=== PATIENT | male | born 1965 | race Caucasian/White ===

== ENCOUNTER 2022-08-19 06:30 | Day surgery (SDC) | payer OTHER, BC, SELFPAY ==
[2022-08-19] VITALS (11 sets, daily range): BP systolic 97–153; BP diastolic 61–99; PULSE 51–58; RESP 14–16; TEMP 36.1–36.8; O2SAT 94–97; BMI 41.4
[2022-08-19] MEDS: SODIUM CHLORIDE 0.9 % (FLUSH) 10 ML SYRINGE IVF (06:45)
[2022-08-19] MEDS: LACTATED RINGERS 1000 ML 1,000 ML 100 ML IV ×2 (06:45→09:38)
--- NOTE | 2022-08-19 08:00 | W.ANESCHARGE ---
Anesthesia Charges Start Date/Time Anesthesia Start Date: 08/19/22 Anesthesia Start Time: 08:19 Stop Date/Time Anesthesia Stop Date: 08/19/22 Anesthesia Stop Time: 09:09
[2022-08-19] MEDS: CEFAZOLIN 2 GM INJ IVP (08:32)
[2022-08-19] MEDS: BUPIVACAINE 0.25% 30 ML INJECTION (08:54)
--- NOTE | 2022-08-19 09:08 | PM.ORPRC ---
Procedure Note Date of procedure: 08/19/22 Procedure: PREOPERATIVE DIAGNOSIS: Right knee medial meniscus tear POSTOPERATIVE DIAGNOSIS: Right knee medial meniscus tear NAME OF OPERATION: Right knee arthroscopic partial medial meniscectomy SURGEON: Houston Pisano MD RESEARCH SPEC: Cassandra Abdalla PA-C ANESTHESIA: Spinal ESTIMATED BLOOD LOSS: 0 mL COMPLICATIONS: None SPECIMENS: None DRAINS: None PREOPERATIVE ANTIBIOTICS: Ancef 2 gram INDICATIONS: The patient is a 56-year-old with a history of right knee medial pain. MRI scan is consistent with a medial meniscus tear. Despite appropriate nonoperative management, including activity modification, antiinflammatories, [id number] pain medication, bracing, physical therapy, and injections they continue to have pain and disability. Operative intervention was offered. The risks, benefits and expected outcomes were discussed in detail. These included but were not limited to: Infection, bleeding, injury to blood vessel or nerve, venous thromboembolism. All questions were answered to their satisfaction. PROCEDURE: Spinal anesthesia was administered. The patient was placed supine on the operating room table. The right lower extremity was prepped and draped in the usual sterile fashion. The limb was exsanguinated with the Juanjose bandage. The pneumatic tourniquet was inflated to 300 mmHg. A standard anterolateral portal was established. The arthroscope was introduced. The working portal was established anteromedially. Diagnostic arthroscopy was performed with findings as follows: The suprapatellar pouch is normal. Articular surface on the patella is normal. Articular surface on the trochlea is normal. The medial gutter is normal. The medial compartment shows diffuse grade 2/3 change on the medial femoral condyle, grade 2 change on the medial tibial plateau. The medial meniscus has a radial tear of the posterior horn from the leading edge, nearly to the capsule. The tear is partially healed over with scar. However the probe easily goes through the scar and displaces the tear. The notch shows the ACL to be intact. The lateral compartment shows normal articular cartilage on the lateral femoral condyle and lateral tibial plateau. The lateral meniscus is normal. The lateral gutter is normal. The posterior horn of the medial meniscus was debrided to a stable base using a combination of baskets and shaver through both portals. Arthroscopic instruments were removed, the portal sites were Steri-Stripped closed, the knee was infiltrated with 30 mL of 0.25% Marcaine without epinephrine. A dry dressing was applied, the tourniquet was released. Sponge and needle counts were correct x 2. The patient tolerated the procedure well. There were no apparent complications. They were carefully transferred to the hospital bed and taken to the postanesthesia care unit in satisfactory condition. PLAN: The patient will be discharged to home. They may weightbear as tolerates. Range of motion will be unrestricted. They will follow up in the office next week for a wound check. The plan is to keep him out of work for 2 weeks, then return to work light duty for 4 weeks.
--- NOTE | 2022-08-19 09:09 | W.ANESCHARGE ---
Anesthesia Charges Start Date/Time Anesthesia Start Date: 08/19/22 Anesthesia Start Time: 08:19 Stop Date/Time Anesthesia Stop Date: 08/19/22 Anesthesia Stop Time: 09:09
== END 2022-08-19 10:50 | disposition home or self-care (01) ==
PROVIDERS: PCP Family Medicine; Visit Provider Orthopaedic Surgery
PROC: (CPT 29870; principal; 2022-08-19 07:45)
DX: S83.241A Other tear of medial meniscus, current injury, right knee, initial encounter (principal)
CPT/HCPCS: 29881; 01400; 82962; J0690; J2250; J2405; J2704; J3010; J3490; J7120

== ENCOUNTER 2022-11-11 09:45 | Outpatient (RCR) | payer OTHER, BC, SELFPAY | END 2023-01-28 14:45 | disposition home or self-care (01) | PROVIDERS: PCP Family Medicine; Visit Provider Physician Assistant | DX: Z98.890 Other specified postprocedural states (principal); M25.561 Pain in right knee; M25.461 Effusion, right knee; R26.9 Unspecified abnormalities of gait and mobility; R53.1 Weakness; Z87.828 Personal history of other (healed) physical injury and trauma; Z51.89 Encounter for other specified aftercare | CPT/HCPCS: 97110; 97112; 97140; 97161; 97530 ==